=== PATIENT | female | born 1950 | race Caucasian/White ===

== ENCOUNTER → 2016-05-08 | Outpatient (CLI) | payer MEDICARE, OTHER ==
[~2016-05-08] MED LIST: LIPITOR PO
--- NOTE | ~2016-05-08 | MY11 ---
[facility] A Service of [facility] RADIOLOGY TEXT RESULTS PATIENT: STEVEN MENDOZA LOCATION: [facility] : 50 UNIT #: [id number] AGE: [address]: Luh Young MD SEX: F ORDER DR: [id number] [address] [address] [id number] P MR#: [id number] Acc #: [id number] NAME: STEVEN MENDOZA : 1950 SEX: F STUDY DATE/TIME: 05/08/2016 9:16 UNIT: [facility] ROOM: STUDY DESCRIPTION: MY Mammogram Screening Dig El Attending Physician: Luh Young M.D. Ordering Physician: Luh Young M.D. Primary Care Physician: Luh Young M.D. MEDICAL IMAGING REPORT This report is preliminary unless electronic signature is present. REVISED REPORT EXAM Digital screening mammogram, 05/08/2016, [facility]. HISTORY 65-year-old woman previous augmentation 1981. Benign right breast biopsy 2007. No risk elevation. Annual screen. COMPARISON Mammograms date to 02/16/2005 with most recent 04/26/2015. TECHNIQUE Digital imaging of each breast was completed utilizing conventional projections and standard Lynne views. Review includes FDA-approved CAD device. FINDINGS Bilateral subglandular silicone implants are encapsulated. 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 Coarse calcification is also noted in the capsules bilaterally more so on the left. Breast parenchyma is predominantly fatty replaced and stable. I see no interval occurring mass. There are no suspicious microcalcifications and no architectural deformity. IMPRESSION Benign mammogram. Stable subglandular encapsulated silicone implants with capsular calcification noted. Confined axillary herniation left implant unchanged. Annual screening recommended. Patients over the age of 40 are entered into a reminder system with target due date for the next mammogram. A result letter will also be sent to the [facility] A Service of [facility] RADIOLOGY TEXT RESULTS PATIENT: STEVEN MENDOZA LOCATION: [facility] : 50 UNIT #: [id number] AGE: [address]: Luh Young MD SEX: F ORDER DR: patient. BIRADS: [address] STATEMENT REMOVED Dictated by... Yadiel Lake M.D. THIS IS AN ELECTRONICALLY VERIFIED REPORT Yadiel Lake M.D. at 05/08/2016 12:26 PM AUDELIA/gina TD: 05/08/2016 10:48 JOB #: [id number] MEDICAL IMAGING REPORT Page 1 of 1
== END | disposition home or self-care (01) ==
LOC: SMAM 07:55
DX: Z12.31 Encounter for screening mammogram for malignant neoplasm of breast (principal); R92.1 Mammographic calcification found on diagnostic imaging of breast
CPT/HCPCS: G0202